=== PATIENT | male | born 1990 | race Caucasian/White ===

== ENCOUNTER 2024-08-07 22:24 | Emergency (ER) | payer SELFPAY ==
[2024-08-08 00:12] LABS: APPEARANCE,URINE CLEAR (CLEAR); BILIRUBIN,URINE NEGATIVE (NEGATIVE); COLOR,URINE YELLOW (YELLOW); GLUCOSE,URINE NEGATIVE (NEGATIVE); KETONES,URINE TRACE (NEGATIVE); LEUKOCYTE ESTERASE,URINE NEGATIVE (NEGATIVE); NITRITE,URINE NEGATIVE (NEGATIVE); OCCULT BLOOD,URINE NEGATIVE (NEGATIVE); PROTEIN,URINE NEGATIVE (NEGATIVE); UROBILINOGEN,URINE 0.2 mg/dL (0.2-1.0)
== END 2024-08-08 01:25 | disposition home or self-care (01) ==
LOC: DL.ED 22:24
DX: M54.50 Low back pain, unspecified (principal)
CPT/HCPCS: 81003; 99282; 99284